=== PATIENT | male | born 1975 | race Two or more races ===

== ENCOUNTER 2020-05-18 14:09 | Emergency (ER) | payer MEDICAID, OTHER ==
[~2020-05-18] VITALS: Ht 165.1 cm; Wt 81.6 kg
[2020-05-18] MEDS ORDERED: traMADol HCL 50 MG TAB PO ONE (17:15)
[2020-05-18] MEDS ORDERED: PANTOPRAZOLE 40 MG/10 ML VIAL INJ IV ONE (21:00)
[2020-05-18] MEDS ORDERED: IOHEXOL 300 MG/ML 100ML BOTTLE IJ ONE (21:09)
[2020-05-18 21:40] LABS: Basophils # (auto) 0.1 10 ^3/uL (0-0.2); Basophils % (auto) 0.4 % (0.0-2.0); Eosinophils # (auto) 0 10 ^3/uL (0-0.8); Hematocrit 47.8 % (41.0-53.0); Hemoglobin 16.4 g/dL (13.5-17.5); Lymphocytes % (auto) 4.5 % (10.0-50.0); Mean Corpuscular Hemoglobin 31.7 pg (28.0-32.0); Mean Corpuscular Hgb Conc. 34.3 g/dL (32.0-36.0); Mean Corpuscular Volume 92.2 fL (80.0-100.0); Monocytes # (auto) 1.2 10 ^3/uL (0-1.3); Monocytes % (auto) 5.4 % (0.0-12.0); Neutrophils % (auto) 89.7 % (37.0-80.0); Nucleated Red Blood Cells % 0.2 %; Platelet Count (auto) 257 10^3/uL (140-450); Red Blood Cells 5.19 10^6/uL (4.5-5.90); Red Cell Distribution Width 12.9 % (11.8-14.3); White Blood Cell 22.3 10^3/uL (4.4-10.8)
[2020-05-18 21:59] LABS: Partial Thromboplastin Time 23.9 sec (23.0-31.2)
[2020-05-18 22:00] LABS: Albumin 4.3 g/dL (3.4-5.0); Anion Gap 13 (5-15); Calcium 9.2 mg/dL (8.5-10.1); Carbon Dioxide 21 mmol/L (21-32); Chloride 97 mmol/L (98-107); Potassium 4.8 mmol/L (3.5-5.1); Sodium 131 mmol/L (136-145)
[2020-05-18 22:05] LABS: Alanine Aminotransferase 312 U/L (16-61); Aspartate Aminotransferase 158 U/L (15-37); BUN/Creatinine Ratio 14.9; Bilirubin, Total 1.2 mg/dL (0.2-1.0); Blood Urea Nitrogen 13 mg/dL (7-18); GFR African American 123 mL/min; GFR Non-African American 101 mL/min; Total Protein 7.5 g/dL (6.4-8.2)
[2020-05-18 22:07] LABS: Alkaline Phosphatase 120 U/L (45-117)
[2020-05-18 22:09] LABS: Glucose 556 mg/dL (74-106)
[2020-05-18] MEDS ORDERED: SODIUM CHLORIDE 0.9% 1,000 ML IV ONE (22:15)
[2020-05-18 22:29] VITALS: BP 110/82
== END 2020-05-18 23:03 | disposition home or self-care (01) ==
LOC: EDBD 14:09 → ER 14:09
DX: S36.899A Unspecified injury of other intra-abdominal organs, initial encounter (principal); S12.401A Unspecified nondisplaced fracture of fifth cervical vertebra, initial encounter for closed fracture; S22.20XA Unspecified fracture of sternum, initial encounter for closed fracture; S12.501A Unspecified nondisplaced fracture of sixth cervical vertebra, initial encounter for closed fracture; V49.9XXA Car occupant (driver) (passenger) injured in unspecified traffic accident, initial encounter; Y93.89 Activity, other specified; Y92.89 Other specified places as the place of occurrence of the external cause; Y99.8 Other external cause status
CPT/HCPCS: 36415; 70450; 71045; 71250; 71260; 72070; 72125; 74177; 80053; 84484; 85025; 85610; 85730; 93005; 96361; 96374; 99285; C9113; Q9967